=== PATIENT | female | born 1940 | race Caucasian/White ===

== ENCOUNTER 2017-02-26 09:36 | Day surgery (SDC) | payer MEDICARE, OTHER ==
--- NOTE | ~2017-02-26 | EGD ---
EGD REPORT [facility] [address] [id number] NAME: CELINE ALVARADO : [birth year] STATUS : REG [facility]#: [id number] AGE: 76 ADM/REG DATE : 02/26/17 MR#: [id number] REPORT SERV DATE: 02/26/17 DICTATED BY: DONNIE ASHTON DATE: 02/26/17 REPORT STATUS : Draft TRANSCRIBED BY: [facility] DATE: 02/26/17 Endoscopy Center Patient Name: Celine Alvarado Date of : 1940 Attending MD: DONNIE ASHTON MD Procedure Date No Time: 02/26/2017 Procedure: Flexible Sigmoidoscopy Indications: High risk colon cancer surveillance: Personal history of colonic polyps Referring MD: KINA CARRILLO Medicines: as per anesthesia Complications: No immediate complications. Procedure: Pre-Anesthesia Assessment: - ASA Grade Assessment: II - A patient with mild systemic disease. After obtaining informed consent, the endoscope was passed under direct vision. Throughout the procedure, the patient's blood pressure, pulse, and oxygen saturations were monitored continuously. The PCF [id number] was introduced through the anus and advanced to the sigmoid colon. The flexible sigmoidoscopy was accomplished without difficulty. The patient tolerated the procedure. The quality of the bowel preparation was adequate to identify polyps. Findings: The perianal and digital rectal examinations were normal. A sessile polyp was found in the sigmoid colon. The polyp was 15 mm in size. The polyp was removed with a cold snare. Resection and retrieval were complete. A few small and large-mouthed diverticula were found in the sigmoid colon. Impression: - One 15 mm polyp in the sigmoid colon. Resected and retrieved. - Diverticulosis in the sigmoid colon. Recommendation: - Await pathology results. Procedure Code(s): --- Professional --- 88284, Sigmoidoscopy, flexible; with removal of tumor(s), polyp(s), or other lesion(s) by snare technique Diagnosis Code(s): --- Professional --- D12.5, Benign neoplasm of sigmoid colon EGD REPORT [facility] [address] [place] [address]. [id number] NAME: CELINE ALVARADO : [birth year] STATUS : REG [facility] PAT#: [id number] AGE: 76 ADM/REG DATE : 02/26/17 MR#: [id number] REPORT SERV DATE: 02/26/17 DICTATED BY: DONNIE ASHTON. DATE: 02/26/17 REPORT STATUS : Draft TRANSCRIBED BY: [employer] DATE: 02/26/17 K57.30, Diverticulosis of large intestine without perforation or abscess without bleeding Z86.010, Personal history of colonic polyps CPT copyright 2013 [employer]. All rights reserved. The codes documented in this report are preliminary and upon health information coder review may be revised to meet current compliance requirements. DONNIE ASHTON MD 02/26/2017 11:59 AM This report has been signed electronically. Number of Addenda: 0 Note Initiated On: 02/26/2017 11:24 AM Scope Withdrawal Time 0 hours 0 minutes 0 seconds [address] [place] [address]
[~2017-02-26 09:36] MED LIST: ASAB PO; CITRACAL PO; CRESTOR10 PO; LIPITOR20 PO; MULTIPLE VIT PO; PROTONIX PO; ZANTAC150 MG PO; ZESTORETIC1 TA1 PO
== END 2017-02-26 23:59 | disposition home or self-care (01) ==
LOC: DMU 09:36
PROVIDERS: Internal Medicine Gastroenterology
PROC: 0DBN8ZZ Excision of Sigmoid Colon, Via Natural or Artificial Opening Endoscopic (ICD-10-PCS; principal; 2017-02-26 11:30)
DX: Z12.11 Encounter for screening for malignant neoplasm of colon (principal); D12.5 Benign neoplasm of sigmoid colon; K57.30 Diverticulosis of large intestine without perforation or abscess without bleeding; E78.5 Hyperlipidemia, unspecified; E11.9 Type 2 diabetes mellitus without complications; H91.90 Unspecified hearing loss, unspecified ear; E78.00 Pure hypercholesterolemia, unspecified; Z97.4 Presence of external hearing-aid; K21.9 Gastro-esophageal reflux disease without esophagitis; I10 Essential (primary) hypertension; Z79.82 Long term (current) use of aspirin; Z86.010 Personal history of colon polyps; Z79.899 Other long term (current) drug therapy; Z88.0 Allergy status to penicillin
CPT/HCPCS: 82962; 88305